=== PATIENT | male | born 1965 | race Caucasian/White ===

== ENCOUNTER → 2019-08-12 | Outpatient (CLI) | payer SELFPAY ==
[~2019-08-12] MED LIST: HOLD METFORMIN - RECEIVED CONTRAST 20 ML VIAL IV SCH; IOHEXOL 350 MG/ML 100 ML (OMNIPAQUE 350) VIAL IV ONE; NS 100 ML (IVPB) BAG IV ONE
--- NOTE | 2019-08-12 12:07 | Diagnostic Imaging Report ---
PROCEDURE: CT abdomen and pelvis with contrast. TECHNIQUE: Multiple contiguous axial images were obtained through the abdomen and pelvis after administration of intravenous contrast. Auto Exposure Controls were utilized during the CT exam to meet ALARA standards for radiation dose reduction. INDICATION: Abdominal pain and elevated lipase. COMPARISON: No prior studies are available for comparison. FINDINGS: The lung bases are clear. No discrete liver mass is detected. The gallbladder is unremarkable. No biliary ductal dilatation is identified. The pancreas demonstrates homogeneous enhancement. No peripancreatic inflammatory stranding or fluid collection is identified. No pancreatic ductal dilatation is seen. The spleen is unremarkable. No adrenal mass is detected. There is a 3.7 x 2.3 cm cyst involving the right kidney. The left kidney is unremarkable. The aorta is nonaneurysmal. The small and large bowel loops are of normal caliber. No obstruction is seen. No free fluid or fluid collection is identified. The bladder is decompressed. There is a fat-containing left inguinal hernia. Post surgical changes in the lumbar spine are noted. IMPRESSION: 1. Right renal cyst. 2. Fat-containing left inguinal hernia. 3. No acute feature in the abdomen or pelvis is identified. Dictated by: Dictated on workstation # [id number]
== END ==
LOC: RAD 11:00
PROVIDERS: ATTEND Physician Assistant
DX: N28.1 Cyst of kidney, acquired (principal); K40.90 Unilateral inguinal hernia, without obstruction or gangrene, not specified as recurrent; R10.84 Generalized abdominal pain; R74.8 Abnormal levels of other serum enzymes
CPT/HCPCS: 74177

== ENCOUNTER 2019-09-07 09:45 | Outpatient (RCR) | payer OTHER ==
[~2019-09-07] VITALS: Ht 170 cm; Wt 70.5 kg
== END 2019-09-07 15:10 | disposition home or self-care (01) ==
LOC: PREOP 09:45
PROVIDERS: ATTEND Surgery
DX: Z01.812 Encounter for preprocedural laboratory examination (principal); Z11.59 Encounter for screening for other viral diseases; K82.4 Cholesterolosis of gallbladder
CPT/HCPCS: 87635

== ENCOUNTER 2019-09-11 07:05 | Day surgery (SDC) | payer OTHER ==
[~2019-09-11] VITALS: Ht 170 cm; Wt 70.5 kg
[2019-09-11] VITALS (15 sets, daily range): BP systolic 117–164; BP diastolic 70–103
[2019-09-11] MEDS ORDERED: CLINDAMYCIN 600 MG/50 ML IVPB 50 ML IV ONE (07:30)
[2019-09-11] MEDS: LACTATED RINGERS 1,000 ML IV PRN ×2 (07:38→09:55)
[2019-09-11 07:49] LABS: BASOPHILS # (AUTO) 0.1 10^3/uL (0.0-0.1); BASOPHILS % (AUTO) 1 % (0-10); EOSINOPHILS # (AUTO) 0.4 10^3/uL (0.0-0.3); EOSINOPHILS % (AUTO) 6 % (0-10); HEMATOCRIT 45 % (40-54); HEMOGLOBIN 15.1 G/DL (13.3-17.7); LYMPHOCYTES # (AUTO) 2.2 X 10^3 (1.0-4.0); LYMPHOCYTES % (AUTO) 29 % (12-44); MEAN CORPUSCULAR HEMOGLOBIN 32 PG (25-34); MEAN CORPUSCULAR HGB CONC 34 G/DL (32-36); MEAN CORPUSCULAR VOLUME 94 FL (80-99); MEAN PLATELET VOLUME 10.8 FL (7.4-10.4); MONOCYTES # (AUTO) 0.6 X 10^3 (0.0-1.0); MONOCYTES % (AUTO) 8 % (0-12); NEUTROPHILS # (AUTO) 4.3 X 10^3 (1.8-7.8); NEUTROPHILS % (AUTO) 57 % (42-75); PLATELET COUNT 178 10^3/uL (130-400); RED CELL DISTRIBUTION WIDTH 14.3 % (10.0-14.5); WHITE BLOOD COUNT 7.6 10^3/uL (4.3-11.0)
--- NOTE | 2019-09-11 08:27 | Progress Note-Pre Operative ---
Pre-Operative Progress Note H&P Reviewed The H&P was reviewed, patient examined and no changes noted. Date Seen by Provider: September 11, 2019 Time Seen by Provider: 08: Date H&P Reviewed: September 11, 2019 Time H&P Reviewed: : Pre-Operative Diagnosis: gallbaldder polyp, epigastric abd pain HONEY MUSA DO September 11, 2019 08:27
[2019-09-11] MEDS ORDERED: fentaNYL INJECTION 100 MCG/2 ML AMP ONE (08:33)
[2019-09-11] MEDS ORDERED: MIDAZOLAM 2 MG/2 ML (VERSED) VIAL ONE (08:33)
[2019-09-11] MEDS ORDERED: BUP/EPI 0.5% 1:200,000 (SENSORCAINE) 30 ML VIAL ONE (08:43)
--- OUTSIDE RECORDS SUMMARY | 2019-09-11 09:17 | XMS REPORT | Continuity of Care Document ---
Author Organization Unknown Address Unknown Phone Unavailable Allergies Active Description Code Type Severity Reaction Onset Reported/Identified Relationship to Patient Clinical Status Yes NO KNOWN DRUG ALLERGIES UNKNOWN NO KNOWN DRUG ALLERG Yes PENICILLINS UNKNOWN UNKNOWN Yes Penicillins Drug Allergy 07/24/2012 Yes Penicillins Drug Allergy N/A N/A 07/24/2012 Yes No Allergy Information Available [id number] Drug Allergy Unknown N/A 020 Yes Penicillins [id number] Drug Aller gy Mild RASH, FROM CHIL 09/04/2019 Medications Medication Packaging Start Date St op Date Route Dosage Sig ONDANSETRON VIAL INJ 4 MG/2CC (ZOFRAN 2CC VIAL) MG 08/09/2018 08/09/2018 PRN ONCE NORMAL SALINE 1000CC IV BAG INJ 0.9 % (NS 1000CC IV BAG) ml 08/09/2018 08/09/2018 ONCE&2316 FAMOTIDINE TAB 20 MG (PEPCID) MG 08/09/2018 08/09/2018 ONCE&2347 PROCHLORPERAZINE VIAL INJ 10 MG/2CC (COMPAZINE VIAL) MG 08/10/2018 08/10/2018 ONCE&0002 NORMAL SALINE 1000CC IV BAG INJ 0.9 % (NS 1000CC IV BAG) ml 08/10/2018 08/10/2018 ONCE&0002 LORAZEPAM 1CC VIAL INJ 2 MG/CC (ATIVAN VIA L) MG 08/10/2018 08/10/2018 PRN ONCE FAMOTIDINE TAB 20 MG (PEPCID) MG 08/10/2018 08/16/2018 BID&0800,2000 Problems Date Dx Coded Attending Type Code Diagnosis Diagnosed By 07/24/2012 SHANT DURAN APRN 251.2 HYPOGLYCEMIA 07/24/2012 SHANT DURAN APRN 780.50 UNSPECIFIED SLEEP DISTURBANCE 07/24/2012 SHANT DURAN APRN 787.01 NAUSEA WITH VOMITING 07/24/2012 SHANT DURAN APRN V70.0 EXAM - ROUTINE H&P 08/10/2018 LEISURE, MAGDIEL W 535.0 ACUTE GASTRITIS 08/10/2018 LEISURE, MAGDIEL W 535.00 ACUTE GASTRITIS, WITHOUT MENTION OF HEMORRHAGE 08/10/2018 LEISURE, MAGDIEL W A09 INFECTIOUS GASTROENTERITIS AND COLITIS, UNSPECIFIED 08/10/2018 LEISURE, MAGDIEL Thompson K29.00 ACUTE GASTRITIS WITHOUT BLEEDING 08/13/2019 MARCIE ANNE Ot K40.90 UNIL INGUINAL HERNIA, W/O OBST OR GANGR, 08/13/2019 MARCIE ANNE Ot N28 .1 CYST OF KIDNEY, ACQUIRED 08/13/2019 MARCIE ANNE Ot R10.84 GENERALIZED ABDOMINAL PAIN 08/13/2019 MARCIE ANNE Ot R74 .8 ABNORMAL LEVELS OF OTHER SERUM ENZYMES 08/14/2019 MARCIE ANNE Ot K40.90 UNIL INGUINAL HERNIA, W/O OBST OR GANGR, 08/14/2019 MARCIE ANNE Ot N28 .1 CYST OF KIDNEY, ACQUIRED 08/14/2019 MARCIE ANNE Ot R10.84 GENERALIZED ABDOMINAL PAIN 08/14/2019 MARCIE ANNE Ot R74 .8 ABNORMAL LEVELS OF OTHER SERUM ENZYMES 08/18/2019 MARCIE ANNE Ot K40.90 UNIL INGUINAL HERNIA, W/O OBST OR GANGR, 08/18/2019 MARCIE ANNE Ot N28 .1 CYST OF KIDNEY, ACQUIRED 08/18/2019 MARCIE ANNE Ot R10.84 GENERALIZED ABDOMINAL PAIN 08/18/2019 MARCIE ANNE Ot R74 .8 ABNORMAL LEVELS OF OTHER SERUM ENZYMES Procedures Code Description Performed [place] [address] ROUT INE VENIPUNCTURE 07/28/2012 77393 CBC 07/28/2012 71407 LIPI D PANEL 07/28/2012 52212 CMP 07/28/20125215288 GF R CALC (RESULT ONLY) 07/28/2012 53516 TSH 07/28/2012 13716 INSU ELVIS LEVEL 07/28/2012 Results Test Result Range Comprehensive Metabolic Panel - 08/09/18 23:16 Albumin 4.4 g/dL 3.6-5.1 ALP 66 U/L 35-130 ALT 9 U/L 6-45 Anion Gap 18 6-14 AST 12 U/L 2-40 BUN 14 mg/dL 5-25 Calcium 10.3 mg/dL 8.3-10.4 Chloride 96 mmol/L 95-114 CO2 23 mEq/L 22-33 Creat 0.82 mg/dL 0.50-1.50 eGFR 99 mL/min/1.73m2 >59 Globulin 3.3 g/dL 2.3-3.5 Glucose 101 mg/dL 70-110 Osmo 276 280-295 Potassium 3.6 mmol/L 3.5-5.3 Sodium 133 mmol/L 134-148 TBil 0.7 mg/dL 0.2-1.2 TP 7.7 g/dL 6.0-8.3 Coronavirus SARS-CoV-2 SO 2018 - 0 13:13 Coronavirus Ab [Units/volume] in Serum Negative Negative Complete blood count (CBC) with automate d white blood cell (WBC) differential - 09/11/19 07:37 Blood leukocytes automated count (number/volume) 7.6 10*3/uL 4.3-11.0 Blood erythrocytes automated count (number/volume) 4.76 10*6/uL 4.35-5.85 Venous blood hemoglobin measurement (mass/volume) 15.1 g/dL 13.3-17.7 Blood hematocrit (volume fraction) 45 % 40-54 Automated erythrocyte mean corpuscular volume 94 [ foz_us] 80-99 Automated erythrocyte mean corpuscular h emoglobin (mass per erythrocyte) 32 pg 25-34 Automated erythrocyte mean corpuscular h emoglobin concentration measurement (mass/volume) 34 g/dL 32-36 Automated erythrocyte distribution width ratio 14. 3 % 10.0- 14.5 Automated blood platelet count (count/volume) 178 10*3/uL 130-400 Automated blood platelet mean volume measurement 10.8 [foz_us] 7.4-10.4 Automated blood neutrophils/100 leukocytes 57 % 42-75 Automated blood lymphocytes/100 leukocytes 29 % 12-44 Blood monocytes/100 leukocytes 8 % 0-12 Automated blood eosinophils/100 leukocytes 6 % 0-10 Automated blood basophils/100 leukocytes 1 % 0-10 Blood neutrophils automated count (number/volume) 4.3 10*3 1.8-7.8 Blood lymphocytes automated count (number/volume) 2.2 10*3 1.0-4.0 Blood monocytes automated count (number/volume) 0. 6 10*3 0.0-1.0 Automated eosinophil count 0.4 10*3/uL 0 .0-0.3 Automated blood basophil count (count/volume) 0.1 10*3/uL 0.0-0.1 Encounters ACCT No. Visit Date/Time Discharge Status Pt. Type Provider Facility Loc./Unit Complaint [id number] 07/28/2012 08:01:00 07/28/2012 23:59: 59 CLS Outpatient SHANT DURAN APRN [id number] 09/07/2019 09:45:00 15:10:00 DIS Outpatient HONEY MUSA DO [facility] [address] PREOP LAPAROSCOPIC CHOLECYSTE CTOMY [id number] 08/12/2019 11:00:00 23:59:59 CLS Outpatient MARCIE ANNE [facility] [address] RAD GENERALIZED ABD PAIN,EL EVATED LIPASE [id number] 09/11/2019 07:05:[address] Outpatient HONEY MUSA DO [facility] [address] SDC EPIGASTRIC ABDOMINAL PAIN, G ALLBLADDER POLYP [id number] 08/09/2018 23:10:00 08/10/2018 01:05: 00 DIS Outpatient MAGDIEL WILCOX [facility] [id number] 08/09/2018 23:26:39 Document Registration
[2019-09-11] MEDS ORDERED: SEVOFLURANE (ULTANE) 15 ML INHAL SOLN ONE (10:10)
[2019-09-11] MEDS ORDERED: ONDANSETRON 4 MG/2 ML (SDV) Z0FRAN ONE (10:10)
[2019-09-11] MEDS ORDERED: LIDOCAINE PF 2% 5 ML (XYLOCAINE) VIAL ONE (10:10)
[2019-09-11] MEDS ORDERED: ROCURONIUM 10 MG/ML 5 ML SYRINGE IV ONE (10:10)
[2019-09-11] MEDS ORDERED: proPOfol 200 MG/20 ML (DIPRIVAN) VIAL IV ONE ×2 (10:10→10:11)
[2019-09-11] MEDS ORDERED: DEXAMETHASONE 10 MG/ML (DECADRON) 1 ML VIAL ONE (10:10)
[2019-09-11] MEDS ORDERED: morphine INJ 10 MG/ML 1ML (SYR OR VIAL) ONE (10:11)
[2019-09-11] MEDS ORDERED: IOPAMIDOL 61% 30 ML (ISOVUE 300) VIAL ONE (10:25)
[2019-09-11] MEDS ORDERED: NEOSTIGMINE 3 MG/3 ML VIAL ONE (10:34)
[2019-09-11] MEDS ORDERED: GLYCOPYRROLATE 0.2 MG/ML (ROBINUL) 2 ML VIAL ONE (10:34)
--- NOTE | 2019-09-11 10:46 | Progress Note-Post Operative ---
Post-Operative Progess Note Surgeon (s)/Public Transit [employer] Driver (s) Surgeon HONEY MUSA DO Public [employer] Bus Driver: Dr. Toledo to assist in retraction dissection and closure Pre-Operative Diagnosis gallbaldder polyp, epigastric abd pain Post-Operative Diagnosis same Procedure & Operative Findings Date of Procedure 09/11/19 Procedure Performed/Findings PROCEDURE: Laparoscopic cholecystectomy with intraoperative cholangiogram. COMPLICATIONS: None. INDICATIONS: Patient is a 54 year old male with epigastric abdominal pain and symptoms consistent with gallbladder disease. Patient found to have gallbladder polyp by ultrasound. He understands risks and benefits and wishes to proceed. PROCEDURE: The patient was taken to the operating suite and was prepped and draped in sterile fashion. A surgical pause was performed. Just superior to the umbilicus, a 12 mm incision was made. Dissection was taken down to the fascia, which was then scored and grasped with a Erica and the abdomen was then entered. A 0 Vicryl suture was placed in a [id number] fashion and a Spencer trocar was placed and secured. Pneumoperitoneum was achieved. A 5mm trochar place in the subxyphoid and 2 in the right upper quadrant. Multiple adhesions were taken down. The gallbladder was then grasped and elevated. The cystic duct, and cystic artery were then dissected out. Clip was placed on the distal portion of the cystic duct which was then partially transected. An arrow catheter was inserted into the duct. The cholangiogram was then performed. No filing defects and contrast made its way into the duodenum. Catheter removed. Clips were placed on proximal portion of the cystic duct and then the duct was then transected. Clips were placed along the proximal and distal portion of the cystic artery which was then transected. Hook cautery was used to dissect the gallbladder from the gallbladder fossa achieving hemostasis. The gallbladder was placed in an Endobag and removed through the 12 mm trocar site. The abdomen was then reinspected. Copious amounts of irrigation were used to irrigate the abdomen and there were no signs of active bleeding. Hemostasis had been achieved. The 12 mm fascial defect was then closed with 0 Vicryl suture that had been placed in a [id number] fashion. The abdomen was then desufflated, the trocars were removed. The abdomen was then washed and dried. The skin was then closed using 4-0 Monocryl in a subcuticular fashion. The abdomen was washed and dried and Skin Affix was place over incisions. Patient tolerated the procedure well without any complications and was taken to the recovery room in stable condition. Anesthesia Type general Estimated Blood Loss Estimated blood loss (mL): minimal Specimens/Packing Specimens Removed gallbladder HONEY MUSA DO September 11, 2019 10:46
[2019-09-11] MEDS ORDERED: DOCU-143 PO (10:47)
[2019-09-11] MEDS ORDERED: HYDR-4226 PO (10:47)
--- NOTE | 2019-09-11 10:48 | Discharge Inst-Simple/Standard ---
Discharge Inst-Standard Discharge Medications New, Converted or Re-Newed RX: RX on Chart Patient Instructions/Follow Up Plan of Care/Instructions/FU: 2 weeks Lb Activity as Tolerated: No Discharge Diet: Regular Diet Other Inst to Patient Follow up Appt: Make appointment for 2 weeks. Instructions: No lifting greater than 10 pounds. No strenuous activity. May shower in 24 hours, no tub bath or soaking. Use incentive spirometer at home as directed. No Smoking Skin/Wound Care: You have special glue over incision, it will fall off on it's own. Symptoms to Report: Appetite Changes, Extremity Discoloration, Numbness/Tingling, Swelling Increased, Bleeding Excessive, Eyesight Changes, Pain Increased, Urine Color Change, Constipation(Persistent), Fever over 101 degree F, Pain/Pressure in ches t, Urinating Difficulty, Cough Up/Vomit Blood, Heart Beat Irreg/Pounding, Pain/Pressure in jaw, Vaginal Bleeding Increase, Cramps in feet or legs, Lightheadedness, Pain/Pressure in shoulder, Diarrhea(Persistent), Memory Changes Suddenly, Questions/Concerns, Weight gain consecutive days, Dizziness/Fainting, Nausea/Vomiting, Shortness of Breath, Weight gain over 2 pounds. If eyes or skin turn yellow notify physician. If questions or concerns contact your physician Or seek help at emergency department. HONEY MUSA DO September 11, 2019 10:48
[2019-09-11] MEDS ORDERED: MEPERIDINE (DEMEROL) INJ 50 MG/ML IVP ONE (11:00)
[2019-09-11] MEDS ORDERED: morphine INJ 10 MG/ML 1ML (SYR OR VIAL) IVP ONE (11:00)
[2019-09-11] MEDS ORDERED: ONDANSETRON 4 MG/2 ML (SDV) Z0FRAN IVP PRN (11:00)
--- NOTE | 2019-09-11 11:10 | Diagnostic Imaging Report ---
INDICATION: Fluoroscopy for intraoperative cholangiogram. Fluoroscopy was provided in the OR during intraoperative cholangiogram. 8 seconds of fluoroscopic time was utilized. Images demonstrate contrast being injected via the cystic duct remnant. Intrahepatic and extrahepatic bile ducts are normal caliber. No filling defects are seen to suggest retained stone. Contrast flows into the duodenum. IMPRESSION: Fluoroscopy for intraoperative cholangiogram. Dictated by: Dictated on workstation # [id number]
[2019-09-11] MEDS: fentaNYL INJECTION 100 MCG/2 ML AMP IVP ONE ×2 (11:11→11:32)
--- NOTE | 2019-09-11 11:25 | Anesthesia-General Post-Op ---
General Patient Condition Mental Status/LOC: Same as Preop Cardiovascular: Satisfactory Nausea/Vomiting: Absent Respiratory: Satisfactory Pain: Controlled Complications: Absent Post Op Complications Complications None Follow Up Care/Instructions Patient Instructions None needed. Anesthesia/Patient Condition Patient Condition Patient is doing well, no complaints, stable vital signs, no apparent adverse anesthesia problems. No complications reported per nursing. ESTEVAN PAN CRNA September 11, 2019 11:25
[2019-09-11] MEDS ORDERED: ONDANSETRON 4 MG/2 ML (SDV) Z0FRAN IVP ONE (12:30)
== END 2019-09-11 13:50 | disposition home or self-care (01) ==
LOC: SDC 07:05
PROVIDERS: ATTEND Surgery
DX: K80.10 Calculus of gallbladder with chronic cholecystitis without obstruction (principal); Z11.2 Encounter for screening for other bacterial diseases; K40.90 Unilateral inguinal hernia, without obstruction or gangrene, not specified as recurrent; F17.210 Nicotine dependence, cigarettes, uncomplicated; Z88.0 Allergy status to penicillin
CPT/HCPCS: 36415; 76000; 85025; 87081; 88304